=== PATIENT | male | born 1990 | race Caucasian/White ===

== ENCOUNTER 2025-03-29 22:13 | Emergency (ER) | payer OTHER, SELFPAY ==
--- OUTSIDE RECORDS SUMMARY | 2024-01-26 06:15 | XMS_ITS ---
Author Organization [facility] vices Address [address] [place], [place] [address] Care Team Providers Care Belt Weaver Name Role Phone Aimee Jamison Unavailable [phone] REASON FOR VISIT Rest #4-MOD, #5-MOD Medications Medication SIG (Take, Route, Frequency, Duration) Notes Start Date End Date Status Cymbalta 30 MG 1 capsule Orally Once a day Not-Taking metFORMIN HCl 1000 MG 1 tablet with a meal Orally Twice daily; Duration: 90 days 09/01/2022 Active Valsartan-hydroCHLOR Othiazide 320-25 MG 1 tablet Oral Once a day; Duration: 90 days Not-Taking metFORMIN HCl ER 750 MG 1 tablet after breakfast Orally Once a day; Duration: 90 days 09/29/2021 Active Norvasc 10 MG 1 Oral daily; Duration: 90 days 10/26/2016 Active Atorvastatin Calcium 10 MG 1 tablet Orally Once a day; Duration: 90 days 09/07/2018 Active Vitamin D (Ergocalciferol) 1.25 MG (04272 UT) TAKE ONE CAPSULE BY MOUTH ONCE WEEKLY; Duration: 28 Active Blood Glucose System Wayne - as directed external weekly; Duration: 30 days Dispense 1 glucometer- insurance preferred or direct to otc version. 04/21/2022 Active Blood Glucose Test Strip 1 strip external daily; Duration: 90 days dispense strips to insurance preferred meter, or direct to otc meter and strips 02/10/2022 Active LORazepam Active Gabapentin Active Social History Sex Assigned At : Social History Observation Description Sex Assigned At Male Encounters Encounter Location Date Provider Diagnosis Dental [address] [phone] 01/26/2024 Aimee Jamison Dental caries int o dentine K02.62 Assessments Encounter Date Diagnosis (ICD Code) Assessment Notes Treatment Notes Treatment Clinical Notes Section Notes 01/26/2024 Dental caries into dentine (ICD-10 - K02.62) Plan Of Treatment No Information Progress Notes * Artemio VARGASOB:1990 ([age] yo M)Acc No.[id number]:01/26/2024 Patient: Papa BROWN Provider: Marly Jamison DDS :1990 A ge:33 Y S ex:Male Date:01/26/2024 Address:[address] [place] [address], [id number] Subjective: * Chief Complaints: * 1 . Rest #4-MOD, #5-MOD. * Medical History: * Medications: T aking Gabapentin , Taking LORazepam , Taking Blood Glucose Test Strip 1 strip external daily , Notes to Pharmacist: dispense strips to insurance preferred meter, or direct to otc meter and strips, Taking Blood Glucose System Wayne - Kit as directed external weekly , Notes to Pharmacist: Dispense 1 glucometer- insurance preferred or direct to otc version., Taking Vitamin D (Ergocalciferol) 1.25 MG (26643 UT) Capsule TAKE ONE CAPSULE BY MOUTH ONCE WEEKLY , Taking Atorvastatin Calcium 10 MG Tablet 1 tablet Orally Once a day , Taking Norvasc 10 MG Tablet 1 Oral daily , Taking metFORMIN HCl ER 750 MG Tablet Extended Release 24 Hour 1 tablet after breakfast Orally Once a day , Taking metFORMIN HCl 1000 MG Tablet 1 tablet with a meal Orally Twice daily , Not-Taking/PRN Cymbalta 30 MG Capsule Delayed Release Particles 1 capsule Orally Once a day , Not-Taking/PRN Valsartan-hydroCHLOROthiazide 320-25 MG Tablet 1 tablet Oral Once a day Objective: * Vitals: * Dental Examination/Plan : Tooth / Surface Status Description Provider 13 DO TP RESIN-BASED COMPOSITE - TWO SURFACES ; POSTERIOR BALJIT 01/26/2024 Assessment: * Assessment: 1. D ental caries into dentine - K02.62 (Primary) Plan: * Treatment: * Billing Information: * Visit Code: * Procedure Codes: * Electronic signature of Sandrita Jamison DDS on 03/29/2025 at 10:24 PM EDT Sign off status: Pending * Provider: Marly Jamison, DDS Date: 0 01/26/2024 Generated for Americo caicedo/Elly/Gagandeep on: 0 03/29/2025 10:24 PM EDT
--- OUTSIDE RECORDS SUMMARY | 2024-08-01 12:00 | XMS_ITS ---
Author Organization [facility] vices Address [address] [place], [place] [address] Care Team Providers Care Bindery Operator Name Role Phone Yaquelin Aimee Unavailable [phone] REASON FOR VISIT Recall (A) (34) Social History Sex Assigned At : Social History Observation Description Sex Assigned At Male Encounters Encounter Location Date Provider Diagnosis [facility] [address] [place] [phone] 08/01/2024 Aimee Jamison Plan Of Treatment No Information Progress Notes * Artemio VARGASOB:1990 ([age] yo M)Acc No.[id number]:08/01/2024 Patient: Papa BROWN Provider: Marly Jamison DDS :1990 A ge:33 Y S ex:Male Date:08/01/2024 Address:[address] [place], [place] [phone] Subjective: * Chief Complaints: * 1 . Recall (A) (34). * Medical History: Objective: * Vitals: Assessment: Plan: * Treatment: * Billing Information: * Visit Code: * Procedure Codes: * Electronic signature of Sandrita Jamison DDS on 03/29/2025 at 10:24 PM EDT Sign off status: Pending * Provider: Marly Jamison DDS Date: 1 10/02/2023 Generated for Printi ng/Faxing/eTransmitting on: 0 03/29/2025 10:24 PM EDT
--- OUTSIDE RECORDS SUMMARY | 2024-12-08 14:15 | XMS_ITS ---
Author Organization [facility] Address [address] [place] [address] Care Team Providers Care Product Assurance Engineer Name Role Phone Daniela Tony Primary Care Provider [phone] REASON FOR VISIT 2 WKS, PX/LABS Encounters Encounter Location Date Provider Diagnosis [facility] [address] [place] [address] 12/08/2024 Daniela Tony Plan Of Treatment No Information Progress Notes * CK LARIOSONDOB:1990 ([age] yo M)Acc No.[id number]:12/08/2024 Patient: BRAD BROWN Provider: Pily Tony CNP :1990 A ge:34 Y S ex:Male Date:12/08/2024 Address:[address] [place], [place] [phone] Subjective: * Chief Complaints: * 1 . 2 WKS, PX/LABS. * Medical History: Objective: * Vitals: Assessment: Plan: * Treatment: * * Electronic signature of Daniela Tony CNP on 03/29/2025 at 10:24 PM EDT Sign off status: Pending * Provider: Pily Tony CNP Date: 0 12/08/2024 Generated for Americo caicedo/Elly/eTlollysmitting on: 0 03/29/2025 10:24 PM EDT
[2025-03-29 22:18] VITALS: BP 116/66; PULSE 84; TEMP 36.8; O2SAT 98; BMI 34.0
--- NOTE | 2025-03-29 22:20 | ECG_ITS ---
[facility] Test Date: 2025-03-29 Pat Name: BRAD LARIOS Department: Room: - Gender: Male Manager Clinical Pharmacy: : 1990 Requested By: [id number] Order Number: [id number] Reading MD: BECKA MARIA M.D. Measurements Intervals [place] Rate: 80 P: 248 [place]: 112 QRS: 3 QRSD: 84 T: -13 QT: 366 QTc: 402 Interpretive Statements ECTOPIC ATRIAL RHYTHM 4068 Nonspecific Twave abnormality 5233 Voltage criteria for LVH 9150 abnormal ECG No previous ECG available for comparison Electronically Signed On 03-30-2025 18:30:39 EDT by BECKA MARIA M.D.
--- OUTSIDE RECORDS SUMMARY | 2025-03-29 22:24 | XMS_ITS | Encounter Summary ---
Author Organization [facility] tem Address [id number] [address] [place] [address] Care Team Providers Care Revenue Stamp Cutter Name Role Phone Ev Masters DO Primary Care Provider Encounter Details Date Type Department Care Team (Late Contact Info) Description 12/21/2022 Abstract [facility] [address] [address] Tiera Nice CMA Social History Tobacco Use Types Packs/Day Years Used Date Smoking Tobacco: Every Day Pipe Smokeless Tobacco: Never Alcohol Use Standard Drinks/Week Comments Not Currently 0 (1 standard drink = 0.6 oz pur e alcohol) rarely Childcare Answer Date Recorded Childcare Unknown 02/08/2019 Employment Answer Date Recorded Employment Unknown 02/08/2019 Purpose - Life Answer Date Recorded Purpose and direction in life Unknown Sex and Gender Information Value Date Recorded Sex Assigned at Not on file Legal Sex Male 12:07 PM EDT Gender Identity Not on file Sexual Orientation Not on file documented as of this encounter Plan of Treatment Upcoming Encounters Date Type Department Care Team (Late Contact Info) Description 04/26/2025 1:00 PM EDT Office Visit [facility] [address] [place] [address] Ev Msaters DO [address] [facility] [place] [address] documented as of this encounter Visit Diagnoses Not on filedocumented in this encounter Additional Health Concerns Infection Onset Date Last Indicated Resolved Time COVID-19 Rule-Out 06/02/2023 06/02/2023 06/02/2023 1:46 PM EDT COVID-19 Rule-Out 02/19/2024 02/19/2024 02/19/2024 3:28 AM EDT documented as of this encounter Care Teams Revenue Stamp Cutter Relationship Specialty Start Date End Date Ev Masters DO [address] [facility] [address] [place] [address] PCP - General Family Medicine 12/18/22 documented as of this encounter
--- OUTSIDE RECORDS SUMMARY | 2025-03-29 22:24 | XMS_ITS | Encounter Summary ---
Author Organization [facility] Address [id number] [address] [place] [address] Care Team Providers Care Planned Giving Officer Name Role Phone Ev Masters Primary Care Provider [phone] Reason for Visit * Reason Onset Date Comments Med Refill 02/21/2024 Encounter Details Date Type Department Care Team (Late Contact Info) Description 02/21/2024 Refill [facility] [address] [place] [address] Jeniffer Cosme, RMPily Upper respiratory infection with cough and congestion Social History Tobacco Use Types Packs/Day Years Used Date Smoking Tobacco: Every Day Pipe Smokeless Tobacco: Never Alcohol Use Standard Drinks/Week Comments Not Currently 0 (1 standard drink = 0.6 oz pur e alcohol) rarely Childcare Answer Date Recorded Childcare Unknown 02/08/2019 Employment Answer Date Recorded Employment Unknown 02/08/2019 Hunger Screening Answer Date Recorded Within the past 12 months we worried whether our food would run out before we got money to buy more. Never True 02/19/2024 Within the past 12 months th e food we bought just didn't last and we didn't have money to get more. Never True 02/19/2024 Purpose - Life Answer Date Recorded Purpose [...] Office Visit [facility] [address] [place] [address] Ev Masters DO [address] [place] [address] documented as of this encounter Visit Diagnoses Diagnosis Upper respiratory infection with cough and congestion documented in this encounter Care Teams Planned Giving Officer Relationship Specialty Start Date End Date Ev Masters DO [address] [facility] [address] [place], [place] [address] PCP - General Family Medicine 12/18/22 documented as of this encounter
--- OUTSIDE RECORDS SUMMARY | 2025-03-29 22:24 | XMS_ITS | Encounter Summary ---
Author Organization [facility] Address [id number] [address] [place] [address] Care Team Providers Care Hearing Health Technician Name Role Phone Ev Masters Primary Care Provider Encounter Details Date Type Department Care Team (Late st Contact Info) Description 12/02/2023 Orders Only [facility] [address] [place] [address] Pablito Riddle, SUPERVISOR THROWING DEPARTMENT-ORTHODONTIC TECHNICIAN ASSISTANT [address] [facility] [place] [address] Gastroesophageal reflux disease, unspecified whether esophagitis present (Primary Dx) Social History Tobacco Use Types Packs/Day Years [...] got money to buy more. Never True 10/28/2023 Within the past 12 months th e food we bought just didn't last and we didn't have money to get more. Never True 10/28/2023 Purpose - Life Answer Date Recorded Purpose and direction in life Unknown Sex and Gender Information Value Date Recorded Sex Assigned at Not on file Legal Sex Male 12:07 PM EDT Gender Identity Not on file Sexual Orientation Not on file documented as of this encounter Plan of Treatment Upcoming Encounters Date Type Department Care Team (Late st Contact Info) Description 04/26/2025 1:00 PM EDT Office Visit [facility] [address] [place] [address] Ev Masters DO [address] [place] [address] documented as of this encounter Visit Diagnoses Diagnosis Gastroesophageal reflux disease, unspecified whether esophagitis present- Primary documented in this encounter Additional Health Concerns Infection Onset Date Last Indicated Resolved Time COVID-19 Rule-Out 02/19/2024 02/19/2024 02/19/2024 3:28 AM EDT documented as of this encounter Care Teams Hearing Health Technician Relationship Specialty Start Date End Date Ev Masters DO [address] [place] [address] PCP - General Family Medicine 12/18/22 documented as of this encounter
--- OUTSIDE RECORDS SUMMARY | 2025-03-29 22:24 | XMS_ITS | Encounter Summary ---
Author Organization [facility] tem Address [id number] [address] [place] [address] Care Team Providers Care Online Advertising Analyst Name Role Phone Ev Masters DO Primary Care Provider Encounter Details Date Type Department Care Team ([facility] Contact Info) Description 03/10/2023 Orders Only [facility] [address] [address] Pablito Riddle, ACCOUNTS COLLECTOR-TRACK SUPERVISOR [address] [facility] [address] [place] [address] Social History Tobacco Use Types Packs/Day Years Used Date Smoking Tobacco: Every Day Cigarettes Smokeless Tobacco: Never Alcohol Use Standard Drinks/Week [...] Office Visit [facility] [address] [place] [address] Ev Masters DO [address] [place], [place] [address] [place] [address] documented as of this encounter Visit Diagnoses Not on filedocumented in this encounter Additional Health Concerns Infection Onset Date Last Indicated Resolved Time COVID-19 Rule-Out 06/02/2023 06/02/2023 06/02/2023 1:46 PM EDT COVID-19 Rule-Out 02/19/2024 02/19/2024 02/19/2024 3:28 AM EDT documented as of this encounter Care Teams Online Advertising Analyst Relationship Specialty Start Date End Date Ev Masters DO [address] [place] [address] PCP - General Family Medicine 12/18/22 documented as of this encounter
--- OUTSIDE RECORDS SUMMARY | 2025-03-29 22:25 | XMS_ITS | Patient Health Record ---
Author Organization [facility] Address [address] [place] [address] Care Team Providers Care Hoist Mechanic Name Role Phone Aniyagloria Daniela Primary Care Provider Allergies No Known Allergies Reason For Referral Reason Obstructive sleep ap janette syndrome Diagnosis 1 Obstructive sleep ap janette syndrome (G47.33) Referral Organization [facility] Referring Provider First Name Daniela Referring Provider Last Name Chavo Referring Provider Speciality Nurse Prac titioner Referred Provider chandler Carr Referred Provider Specialty Sleep Medici ne General Notes hx of wearing a cpap , needs new test Clinical Notes CONSULT PENDING PT H NO VB SET UP , [facility] , [address] [place], [place] [address] , PH [phone], FX [phone], Karina Mishra 11/28/2024 11:05:43 AM > Referral Priority Routine Medications Medication SIG (Take, Route, Fr equency, Duration) Notes Start Date End Date Status metFORMIN HCl 1000 MG 1 tablet with a me al Orally Once a day; Duration: 30 days Ac tive Valsartan 320 MG 1 tablet Orally Once a day; Duration: 30 days Active SEROquel 25 MG 1 tablet at bedtime Orally Once a day Active Vraylar 1.5 MG 1 capsule Orally Once a day Active Social History Tobacco Use: Social History Observation Description Date Details (start date - stop date) Current Smoker 08/30/2002 - NA Tobacco Control (Standard) Question Answer Notes Tobacco use: Current smoker When did you start smoking? 08/30/2002 How often do you smoke cigarettes? Every day How many cigarettes a day do you smoke? 11-20 How soon after you wake up d o you smoke your first cigarette? Within 5 minutes Are you interested in quitting? Thinking about q uitting AUDIT-C (Standard) Question Answer Notes Did you have a drink contain ing alcohol in the past year? Yes How often did you have a dri nk containing alcohol in the past year? Monthly or less (1 point) How many drinks did you have on a typical day when you were drinking in the past year? 5 or 6 drinks (2 points) How often did you have six o r more drinks on one occasion in the past year? Less than monthly (1 point) Points 4 Interpretation Positive Problems Problem Type SNOMED Code ICD Code Onset Dates Problem Status W/U Status Risk Notes Problem Essential hypertension (51357736) Essential hypertension (I10) Active confirmed Problem Type II diabetes mellitus without complication (840177840) Type 2 diabetes mellitus without complication, without long-term current use of insulin (E11.9) Active confirmed Problem Tobacco dependence (00566288) Tobacco dependence (F17.200) Active confirmed Problem Bipolar 2 disorder (92047071) Bipolar 2 disorder (F31.81) Active confirmed Vital Signs Heart Rate 92 /min 11/24/2024 Temperature 97.6 degrees Fahrenheit 11/24/2024 Respiratory Rate 18 /min 11/24/2024 Oximetry 96 % 11/24/2024 Blood pressure diastolic 70 mm Hg 11/24/2024 Height 67.75 in 11/24/2024 Blood pressure systolic 112 mm Hg 11/24/2024 Weight 239.4 lbs 11/24/2024 BMI 36.67 kg/m2 11/24/2024 Encounters Encounter Location Date Provider Diagnosis [facility] [address] [place] [address] 11/24/2024 Daniela Tony Obstructive sleep ap janette syndrome G47.33 ; Type 2 diabetes mellitus without complication, without long-term current use of insulin E11.9 ; Essential hypertension I10 ; Bipolar 2 disorder F31.81 and Tobacco dependence F17.200 [facility] [address] [place] [address] 11/28/2024 Daniela Tony Assessments Encounter Date Diagnosis (ICD Code) Assessment Notes Treatment Notes Treatment Clinical Notes Section Notes 11/24/2024 Type 2 diabetes mellitus without complication, without long-term current use of insulin (ICD-10 - E11.9) med refilled, labs ordered Pt advised to limit carb intake. 5 times weekly Exercise encouraged. Will monitor Blood sugar routinely 11/24/2024 Obstructive sleep apnea syndrome (ICD-10 - G47.33) refer to sleep lab 11/24/2024 Essential hypertension (ICD-10 - I10) stable inoffice today med refilled, labs ordered pt advised to limit salt/sodium intake. Exercise and monitor BP routinely. 11/24/2024 Bipolar 2 disorder (ICD-10 - F31.81) continue to follow with psychiatrist 11/24/2024 Tobacco dependence (ICD-10 - F17.200) patient encouraged to abstain from use of tobacco products Plan Of Treatment Pending Test Test Name Order Date Hemoglobin A1c 11/24/2024 Lipid Panel 11/24/2024 CBC NO DIFF 11/24/2024 CMP 11/24/2024 Insurance Providers Payer Name Payer Address Payer Phone Subscriber Number Group Number Insured Name Patient Relationship to Insured Coverage Start Date Coverage End Date [facility] [address] [place] [address] [id number] BRAD LARIOS Self - patient is the insured Medical (General) History Medical History History ICD Code hypertension sleep apnea type II diabetes bipolar disorder type two depression anxiety 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
--- OUTSIDE RECORDS SUMMARY | 2025-03-29 22:25 | XMS_ITS | Encounter Summary ---
Author Organization [facility] Address [address] [place], [place] [address] Care Team Providers Care Bottom Sander Name Role Phone Unavailable Primary Care Provider Unavailabl e Source Comments In the event this information is protected by the Federal Confidentiality of Alcohol and Drug AbusePatient Records regulations: The Federal rules restrict any use of the information to criminally investigate or prosecute any alcohol or drug abuse patient.[facility] Encounter Details Date Type Department Care Team (Late st Contact Info) Description 03/14/2025 Lab Requisition [facility] [address] [place] [address] Pattie Williamson, PhD [address] [place], [place] [address] Social History Tobacco Use Types Packs/Day Years Used Date Smoking Tobacco: Never Assessed Sex and Gender Information Value Date Recorded Sex Assigned at Not on file Legal Sex Male 11:22 AM EDT Gender Identity Not on file Sexual Orientation Not on file documented as of this encounter Plan of Treatment Not on file documented as of this encounter Procedures Procedure Name Priority Date/Time Associated Diagnosis Comments BLOOD TB SCREEN, INCUBATED Routine 03/13/2025 10:09 AM EDT documented in this encounter Results * BLOOD TB SCREEN, INCUBATED (03/13/2025 10:09 AM EDT) TB Nil 0.12 <=8.00 IU/mL 03/16/2025 12:47 PM EDT [facility] TB1 Ag minus Nil 0.00 <0.35 IU/mL 03/16/2025 12:47 PM EDT [facility] TB2 Ag minus Nil 0.00 <0.35 IU/mL 03/16/2025 12:47 PM EDT [facility] TB Result Negative 03/16/2025 12:47 PM EDT [facility] Mitogen minus Nil >9.88 >=0.50 IU/mL 03/16/2025 12:47 PM EDT [facility] TB Gamma Interpretation Infection with M. tuberculosis complex is unlikely. If latent tuberculosis infection is highly suspected, a negative result does not rule out the infection. Specimens from immunocompromised patients and those <5 years of age may show false negative results. In case of a contact investigation, please repeat 8-12 weeks after a known exposure. 03/16/2025 12:47 PM EDT [facility] Blood BLOOD SPECIMEN / Unknown 03/13/2025 10:09 AM EDT 03/15/2025 9:35 PM EDT us Pattie Williamson PhD LABORATORY Final Resul t [facility] [address] [address] documented in this encounter Visit Diagnoses Not on filedocumented in this encounter
--- OUTSIDE RECORDS SUMMARY | 2025-03-29 22:25 | XMS_ITS | Clinical Summary ---
Author Organization [employer] Address [id number] [address] [place] [address] Care Team Providers Care Inside Sales Account Executive Name Role Phone Ev Masters Primary Care Provider [phone] Allergies Active Allergy Reactions Criticality Noted Date Comments Haloperidol Lactate 03/31/2016 Spoke with pt (01/27/22) - states he had jaw tightness with haloperidol, this happened a long time ago Pt specifies locked jaw with psychiatrist. Chlorpromazine muscle cramps 05/10/2016 Medications * This document contains information received from the source organization and may not represent a complete record from that organization. ibuprofen (MOTRIN) 800 mg tablet Take 1 tablet (800 mg total) by mouth 3 (three) times a day. 21 tablet 4 Active atorvastatin (LIPITOR) 10 mg tabletIndications:M ixed hyperlipidemia Take 1 tablet (10 mg total) by mouth in the morning. 90 tablet 3 5 Active valsartan-hydroCHLO ROthiazide (DIOVAN-HCT) 320-25 mg per tabletIndications:E ssential hypertension Take 1 tablet by mouth in the morning. 90 tablet 3 5 Active metFORMIN (GLUCOPHAGE) 1000 mg tabletIndications:T ype 2 diabetes mellitus with hyperglycemia, without long-term current use of insulin ([facility]) Take 1 tablet (1,000 mg total) by mouth daily with breakfast. 90 tablet 3 5 Active cariprazine (VRAYLAR) 3 mg capsuleIndications: Bipolar depression ([facility]) Take 1 capsule (3 mg total) by mouth in the morning. 90 capsule 3 Active varenicline tartrate (CHANTIX STARTING MONTH BOX) 0.5 mg (11)- 1 mg (42) tabletIndications:T obacco use Take 0.5 mg one daily on days 1-3 and 0.5 mg twice daily on days 4-7. Then 1 mg twice daily for a total of 12 weeks. 53 tablet Active Active Problems Problem Noted Date Diagnosed Date Addictive gambling 09/29/2024 Schizoaffective disorder 09/06/2024 Substance use disorder 06/12/2024 Bipolar depression 05/06/2024 Generalized anxiety disorder with panic attacks 08/29/2023 History of auditory hallucinations 04/19/2023 History of suicidal ideation 04/19/2023 RICARDO (obstructive sleep apnea) 12/18/2022 Tobacco use 12/18/2022 DM (diabetes mellitus), type 2 01/27/2022 Essential hypertension 12/17/2016 Mixed hyperlipidemia 12/17/2016 BMI 30.0-30.9,adult 12/17/2016 Resolved Problems Problem Noted Date Diagnosed Date Resolved Date Attention deficit hyperactiv ity disorder (ADHD), combined type 04/11/2024 05/08/2024 Insomnia due to other mental disorder 08/29/2023 05/08/2024 Prediabetes 06/14/2023 06/14/2023 History of homicidal ideation 04/19/2023 06/12/2024 Hx of psychosis 12/18/2022 05/08/2024 Schizoaffective disorder, bipolar type 12/18/2022 05/08/2024 Severe anxiety with panic 12/18/2022 Bipolar disorder, current ep isode mixed, severe, without psychotic features 01/27/202212/18 Hx of opioid abuse 01/27/2022 Leukocytosis 11/04/2021 12/18/2022 Bipolar affective disorder 08/13/2021 0 12/18/2022 Depression 05/10/2021 07/06/2023 Bipolar affective disorder, currently manic, mild 01/14/2021 04/19/2023 Overdose 01/13/2021 07/06/2023 Severe depressed bipolar I d isorder without psychotic features 06/28/2019 12/18/2022 Severe recurrent major depre ssion with psychotic features 12/15/2016 05/08/2024 Encounters Date Type Department Care Team Description 02/16/2025 12:00 PM EDT - 02/16/2025 12:21 PM EDT Emergency [facility] - ER [address] [place] [phone] Arely Yan DO Oral ulcer (Primary Dx) Discharge Disposition: Home 02/16/2025 Travel 02/13/2025 10:53 PM EDT - 02/13/2025 11:35 PM EDT Emergency [facility] - ER [address] [place] [id number] Vishal Mitchell MD Contusion of right knee, initial encounter (Primary Dx) Discharge Disposition: Home 02/13/2025 Travel 02/06/2025 Orders Only [facility] [address] [address] Ev Masters DO Tobacco use (Primary Dx) 02/06/2025 Refill [facility] [address] [address] Ev Masters DO Bipolar depression ([facility]) 01/24/2025 Telephone [facility] - Sleep Disorders [address] [place] [address] Ev Masters DO Sleep Lab (COMP) 01/23/2025 1:00 PM EDT Office Visit [facility] [address] [place] [address] Ev Masters DO Type 2 diabetes mellitus with hyperglycemia, without long-term current use of insulin (CMS-HCC) (Primary Dx); Essential hypertension; Bipolar depression (CMS-HCC); Mixed hyperlipidemia; RICARDO (obstructive sleep apnea); Excessive daytime sleepiness 01/23/2025 Travel from Last 3 Months Immunizations Immunization Administration Dates Next Due DTP 02/20/1991,06/13/1990,04/18/1990 ,01/31/1990 HiB 02/20/1991 MMR 04/19/2003,02/20/1991 OPV 02/20/1991,04/18/1990,01/31/1990 Td, Unspecified 08/31/2001 Tdap 12/28/2018,05/07/2016 Family History Medical History Relation Name Comments Stroke Father Relation Name Status Comments Father Mother Alive Social History Tobacco Use Types Packs/Day Years Used Date Smoking Tobacco: Every Day Cigarettes Pipe Smokeless Tobacco: Never Tobacco Cessation:Ready to Q uit: Not Asked; Counseling Given: Not Answered Comments:Bowls of tobacco Alcohol Use Standard Drinks/Week Comments Not Currently 0 (1 standard drink = 0.6 oz pur e alcohol) rarely [facility] Utilities Answer Date Recorded In the past 12 months has th e electric, gas, oil, or water company threatened to shut off services in your home? No 05/06/2024 PHQ-2 Answer Date Recorded Total Score 18 01/23/2025 PRAPARE - Transportation Answer Date Re corded In the past 12 months, has l ack of transportation kept you from medical appointments or from getting medications? No 02/2024 In the past 12 months, has l ack of transportation kept you from meetings, work, or from getting things needed for daily living? No 05/06/2024 Housing Instability Answer Date Recorde d Are you worried or concerned that in the next two months you may not have stable housing that you own, rent or stay in as a part of a household? No 05/06/2024 Childcare Answer Date Recorded Childcare Unknown 02/08/2019 Employment Answer Date Recorded Employment Unknown 02/08/2019 Hunger Screening Answer Date Recorded Within the past 12 months we worried whether our food would run out before we got money to buy more. Never True 01/23/2025 Within the past 12 months th e food we bought just didn't last and we didn't have money to get more. Never True 01/23/2025 Purpose - Life Answer Date Recorded Purpose and direction in life Unknown Sex and Gender Information Value Date Recorded Sex Assigned at Not on file Legal Sex Male 12:07 PM EDT Gender Identity Not on file Sexual Orientation Not on file Last Filed Vital Signs Vital Sign Reading Time Taken Comments Blood Pressure 138/93 02/16/2025 12:01 PM EDT Pulse 76 02/16/2025 12:01 PM EDT Temperature 36.1 C (97 F) 02/16/2025 12:01 PM EDT Respiratory Rate 18 02/16/2025 12:01 PM EDT Oxygen Saturation 98% 02/16/2025 12:01 PM EDT Inhaled Oxygen Concentration - - Weight 104.8 kg (231 lb) 02/13/2025 10:58 PM EDT Height 176 cm (5' 9.29 ) 02/13/2025 10:58 PM EDT Body Mass Index 33.83 02/13/2025 10:58 PM EDT Plan of Treatment Upcoming Encounters Date Type Department Care Team (Late st Contact Info) Description 04/26/2025 1:00 PM EDT Office Visit [facility] [address] [place] [address] Ev Masters, DO [address] [facility] [address] [place] [address] Health Maintenance Due Date Last Done Comments Diabetic Ophthalmology Exam 1989 Tobacco Counseling 1989 Adult BMI Follow Up Plan 11/04/2007 Diabetic Foot Exam 11/04/2007 COVID-19 Vaccine (4 - 2023-2 5 season) 2024 10/05/2021, 05/04/2021, 04/13/2021 Influenza Vaccine 04/30/2025 Depression Screening 01/23/2026 01/23/2025 Adult BMI Screening 02/13/2026 02/13/2025 Tobacco Screening 02/16/2026 02/16/2025 DTaP,Tdap and Td Vaccines (8 - Td or Tdap) 12/28/2028 12/28/2018, 05/07/2016, 08/31/2001, Additional history exists Medical Devices Not on file Procedures Procedure Name Priority Date/Time Associated Diagnosis Comments XR KNEE RT 3 VWS STAT 02/13/2025 11:1 6 PM EDT POCT HEMOGLOBIN A1C Routine 01/23/2025 1 :07 PM EDT Type 2 diabetes mellitus with hyperglycemia, without long-term current use of insulin ([facility]) from Last 3 Months Results * X-ray knee right 3 views (02/13/2025 11:16 PM EDT) Anatomical Region Laterality Modality Lower Extremities, MSK, Knee Right Com puted Radiography 02/13/2025 11:1 7 PM EDT Narrative 02/13/2025 11:18 PM EDT XR KNEE RT 3 VWS Clinical history:pain Comparison: None. Findings: No joint effusion. No fracture or dislocation. Alignment and mineralization appear to be within normal limits. Impression: No definitive acute osseous abnormality. Finalized by Mika Martinez MD on 02/13/2025 11:18 PM Procedure Note Mika Martinez MD - 02/13/2025 XR KNEE RT 3 VWS Clinical history:pain Comparison: None. Findings: No joint effusion. No fracture or dislocation. Alignment andmineralization appear to be within normal limits. Impression: No definitive acute osseous abnormality. Finalized by Mika Martinez MD on 02/13/2025 11:18 PM us Vishal Mitchell MD IMG DIAGNOSTIC IMAGING ORDERA BLES Final Result * POCT Hemoglobin A1c (01/23/2025 1:07 PM EDT) External Poct Hgb A1C 5.4 4 - 7 % MANUALLY TRANSCRIBED RESULTS ADA Target < 8 Yes AUDREY DAVE TRANSCRIBED RESULTS Blood 01/23/2025 1:07 PM EDT us Ev Masters DO POINT OF CARE TEST ORDERABL ES Final Result MANUALLY TRANSCRIBED RESULTS from Last 3 Months Insurance [facility] MEDICAID Advance Directives * Full Code (Latest Code Status on File) Date Activated Date Inactivated Comments 09/06/2024 11:54 AM 09/11/2024 12:27 PM * Full Code Date Activated Date Inactivated Comments 05/06/2024 12:04 PM 05/08/2024 2:02 PM * Full Code Date Activated Date Inactivated Comments 01/27/2022 11:32 AM 02/03/2022 3:53 PM * Full Code Date Activated Date Inactivated Comments 11/04/2021 1:55 PM 11/07/2021 1:10 PM * Full Code Date Activated Date Inactivated Comments 08/13/2021 2:42 PM 08/15/2021 1:21 PM Care Teams Inside Sales Account Executive Relationship Specialty Start Date End Date Ev Masters DO [address] [facility] [address] [place] [address] PCP - General Family Medicine 12/18/22
--- OUTSIDE RECORDS SUMMARY | 2025-03-29 22:25 | XMS_ITS | Encounter Summary ---
Author Organization [facility] Address [facility] [id number] [address] [place] [address] Care Team Providers Care Charge Nurse Name Role Phone Ev Masters Torsten VICTORIA Primary Care Provider [phone] Encounter Details Date Type Department Care Team (Late st Contact Info) Description 08/24/2024 Orders Only [facility] [address] [place] [address] Pablito Riddle, HOSPITAL [employer]ICAL BILLER-ROLL FORGER [address] [facility] [place] [address] Social History Tobacco Use Types Packs/Day Years Used Date Smoking Tobacco: Every Day Cigarettes Pipe Smokeless Tobacco: Never Alcohol Use Standard Drinks/Week Comments Yes 0 (1 standard drink = 0.6 oz pur e alcohol) rarely C Utilities Answer Date Recorded In the past 12 months has [employer], gas, oil, or water [employer] threatened to shut off services in your home? No 05/06/2024 PHQ-2 Answer Date Recorded Total Score 0 06/12/2024 PRAPARE - Transportation Answer Date Re corded [...] got money to buy more. Never True 06/12/2024 Within the past 12 months th e food we bought just didn't last and we didn't have money to get more. Never True 06/12/2024 Purpose - Life Answer Date Recorded Purpose [...] Office Visit [facility] [address] [place] [address] Ev Masters DO [address] [facility] [address] [place] [address] documented as of this encounter Visit Diagnoses Not on filedocumented in this encounter Additional Health Concerns Assessment Noted Time PHQ-9 Depression Total Score: 0 06/12/20 24 3:09 PM EDT documented as of this encounter Care Teams Charge Nurse Relationship Specialty Start Date End Date Ev Masters DO [address] [facility] [address] [place] [address] PCP - General Family Medicine 12/18/22 documented as of this encounter
--- OUTSIDE RECORDS SUMMARY | 2025-03-29 22:25 | XMS_ITS | Encounter Summary ---
Author Organization [facility] tem Address [id number] [address] [place] [address] Care Team Providers Care Straightening Machine Feeder Name Role Phone Ev Masters Torsten VICTORIA Primary Care Provider [phone]- [phone] Encounter Details Date Type Department Care Team (Late st Contact Info) Description 08/27/2023 Telephone [facility] [address] [place] [id number] Viri Wolf RMA Social History Tobacco Use Types Packs/Day Years [...] before we got money to buy more. Often True 07/06/2023 Within the past 12 months th e food we bought just didn't last and we didn't have money to get more. Often True 07/06/2023 Purpose - Life Answer Date Recorded Purpose and direction in life Unknown Sex and Gender Information Value Date Recorded Sex Assigned at Not on file Legal Sex Male 12:07 PM EDT Gender Identity Not on file Sexual Orientation Not on file documented as of this encounter Miscellaneous Notes * Telephone Encounter - CHAVEZ Pandya - 08/27/2023 8:39 AM EST Celina krishnamurthy wanted to know if it has to be the extended release because that is requiring a prior authorization or can he have the normal Metformin that he had been getting? * Telephone Encounter - Ev Masters DO - 08/27/2023 8:39 AM EST Normal metformin is fine, as long as that is what he was prescribed in the past. Okay to give verbal order to change. Please update med rec. documented in this encounter Plan of Treatment Upcoming Encounters Date Type Department Care Team ([facility] st Contact Info) Description 04/26/2025 1:00 PM EDT Office Visit [facility] [address] [place] [address] Ev Masters DO [address] [facility] [address] [place] [address] documented as of this encounter Visit Diagnoses Not on filedocumented in this encounter Additional Health Concerns Infection Onset Date Last Indicated Resolved Time COVID-19 Rule-Out 02/19/2024 02/19/2024 02/19/2024 3:28 AM EDT documented as of this encounter Care Teams Straightening Machine Feeder Relationship Specialty Start Date End Date Ev Masters DO [address] [facility] [address] [place] [address] PCP - General Family Medicine 12/18/22 documented as of this encounter
--- OUTSIDE RECORDS SUMMARY | 2025-03-29 22:25 | XMS_ITS | Clinical Summary ---
Author Organization [facility] Address [address] [place] [address] Care Team Providers Care Charge Nurse Name Role Phone Unavailable Primary Care Provider Unavailabl e Encounters Date Type Department Care Team Description 03/14/2025 Lab Requisition [facility] [address] [place], [place] [id number] Pattie Williamson, PhD from Last 3 Months Social History Tobacco Use Types Packs/Day Years Used Date Smoking Tobacco: Never Assessed Sex and Gender Information Value Date Recorded Sex Assigned at Not on file Legal Sex Male 11:22 AM EDT Gender Identity Not on file Sexual Orientation Not on file Plan of Treatment Not on file Procedures Procedure Name Priority Date/Time Associated Diagnosis Comments BLOOD TB SCREEN, INCUBATED Routine 03/13/2025 10:09 AM EDT from Last 3 Months Results * BLOOD TB SCREEN, INCUBATED (03/13/2025 10:09 AM EDT) TB Nil 0.12 <=8.00 IU/mL 03/16/2025 12:47 PM EDT [facility] TB1 Ag minus Nil 0.00 <0.35 IU/mL 03/16/2025 12:47 PM EDT [facility] TB2 Ag minus Nil 0.00 <0.35 IU/mL 03/16/2025 12:47 PM EDT [facility] TB Result Negative 03/16/2025 12:47 PM EDT [facility] Mitogen minus Nil >9.88 >=0.50 IU/mL 03/16/2025 12:47 PM EDT [facility] TB Gamma Interpretation Infection with M. tuberculosis complex is unlikely. If latent tuberculosis infection is highly suspected, a negative result does not rule out the infection. Specimens from immunocompromised patients and those <5 years of age may show false negative results. In case of a contact investigation, please repeat 8-12 weeks after a known exposure. 03/16/2025 12:47 PM EDT [facility] Blood BLOOD SPECIMEN / Unknown 03/13/2025 10:09 AM EDT 03/15/2025 9:35 PM EDT us Pattie Williamson PhD LABORATORY Final Resul t [facility] [address] [address], [place] from Last 3 Months
--- NOTE | 2025-03-29 22:31 | ED_ITS ---
HPI HPI - General Adult General Chief complaint: Psychiatric Symptoms Stated complaint: Suicidal Time Seen by Provider: 03/29/25 22:20 History of Present Illness HPI narrative: Patient is a 34-year-old male from [facility] who presents to the emergency department for suicidal thoughts. The patient is currently in there for cocaine abuse. The patient has a known past medical history of bipolar disease. The patient states that he has been feeling suicidal for some time. And his plan would be to overdose on his medications or overdose on cocaine. He states he has been in [facility] for cocaine abuse since March 13. This is a voluntary program that he wanted to participate in. The patient stated his symptoms really have been building but today his racing and intrusive thoughts have caused him to feel suicidal. He feels extremely anxious. They have been trying to give him Vistaril in the facility but it has not been helpful in curtailing his symptoms. There is not really any specific event that is caused to this patient to all the sudden feel sad and in despair. But rather its because of the racing thoughts. He states that this has happened to him before and has had to have hospitalization. He states that he just got started on Vraylar but it is not demonstrating any change in his behavior or thoughts. Currently the patient does not feel isolated. He has supportive parents. He is not in a relationship and does not have children. Patient is currently not employed but states that that is his choice because at this time he is not concentrating on his sobriety. Patient denies any legal problems. Patient denies anybody's verbally, sexually, or physically assaulting him. Related Data Allergies Allergy/AdvReac Type Severity Reaction Status Date / Time No Known Drug Allergies Allergy Verified 03/29/25 22:33 Opioid HPI Opioid Management Most Recent Opioid Data: Ur Phencyclidine Scrn, (NEGATIVE) Negative , 23:04 Review of Systems ROS Narrative 10 Systems were reviewed, and unless not ed in the HPI, all other systems are reviewed, unremarkable, or noncontributory. PFSH PFSH Social History Little interest or pleasure in doing things: not at all Feeling down, depressed, or hopeless: several days Exam Narrative Exam Narrative: Prior to examining the patient, I have washed with hospital approved and provided Antiseptic [employer] and have also applied gloves.? Prior to touching the patient, I asked for consent to examine the patient.? General: Alert and oriented, well nourished, mild distress. Eye: PERRL, EOMI, normal conjunctiva. HENT: Normocephalic, normal hearing, moist oral mucosa, no scleral icterus, no sinus tenderness. Neck: Supple, non-tender, no carotid bruits, no JVD, no lymphadenopathy. Lungs: Clear to auscultation and percussion, non-labored respiration. Heart: Normal rate, regular rhythm, no murmur, gallop or edema. Abdomen: Soft, non-tender, non-distended, normal bowel sounds, no masses. Musculoskeletal: Normal range of motion and strength, no tenderness or swelling. Skin: Skin is warm, dry and pink, no rashes or lesions. Neurologic: Awake, alert, and oriented X3, CN II-XII intact. Psychiatric: Cooperative, flat affect and depressed mood. Following the conclusion of the examination, I have washed my hands thoroughly after removing examination gloves. Constitutional Vital Signs, click to edit/add: Last Vital Signs Temp 98.3 F 03/29/25 22:18 Pulse 84 03/29/25 22:18 Resp 20 03/29/25 22:18 BP 116/66 03/29/25 22:18 Pulse Ox 98 03/29/25 22:18 Course Course Hospital Course: Medical clearance for psychiatric care. He was placed in paper scrubs and a sitter was initiated. Reevaluation(s) Reevaluation #1: I checked on the patient. He is currently speaking on the phone with mental health. The patient was given Ativan and does feel like it is working at this time. Patient is officially medically cleared. He does have mild hypokalemia and was ordered potassium eff 50 mEq PO. Time: 23:37 Reevaluation #2: Patient is starting to AMP up and request something for anxiety. Haldol 5 mg p.o., Benadryl 50 mg p.o., and Ativan 1 mg p.o. were ordered. Time: 00:31 Consultations Consultation #1: Behavioral health has contacted our facility and had indicated that the patient is going to be held. Time: 00:10 Consultation #2: We were contacted and Dr. Segovia has accepted the patient with a diagnosis of schizoaffective disorder Time: 00:47 Vital Signs Vital signs: Vital Signs Temperature 98.3 F 03/29/25 22:18 Pulse Rate 84 03/29/25 22:18 Respiratory Rate 20 03/29/25 22:18 Blood Pressure 116/66 03/29/25 22:18 Pulse Oximetry 98 03/29/25 22:18 Temperature 98.3 F 03/29/25 22:18 Pulse Rate 84 03/29/25 22:18 Respiratory Rate 20 03/29/25 22:18 Blood Pressure 116/66 03/29/25 22:18 Pulse Oximetry 98 03/29/25 22:18 Medical Decision Making MDM Narrative Medical decision making narrative: In summary, the patient is a 34-year-old male presenting to the emergency department depression with suicidal ideation. Patient consented to receiving medical clearance. His desire is to be placed in a hospital environment. [facility] was contacted immediately upon his arrival to aid in the screening. Because the patient was anxious, we gave him 1 dose of Ativan 1 mg by mouth. Please note that the patient was not exhibiting any hostile behaviors to myself or the staff. He has been quite cooperative. He did indicate that the Vistaril that they were supplying him in the outside facility was insufficient to help him with his anxiety at this time. Differential Diagnosis Differential Diagnosis: Malingering, withdrawal, bipolar exacerbation, depression, suicidal ideatio Medical Records Medical records reviewed: Yes I reviewed the patient's medical records Lab Data Lab results reviewed: Yes I reviewed the patient's lab results Labs: Lab Results 03/29/25 03/29/25 Range/Units 22:50 23:04 WBC 9.4 (4.0-11.0) 10^3/uL RBC 5.12 (4.70-6.10) 10^6/uL Hgb 15.6 (14.0-18.0) g/dL Hct 43.8 (42.0-54.0) % MCV 85.5 (80.0-94.0) fL MCH 30.5 (25.9-34.0) pg MCHC 35.6 H (29.9-35.2) g/dL RDW 11.9 (11.0-15.0) % Plt Count 283 (150-450) 10^3/uL MPV 9.3 L (9.5-13.5) fL Neut % (Auto) 46.9 (43.0-75.0) % Lymph % (Auto) 36.9 (20.5-60.0) % Stephen[place] % (Auto) 10.7 (1.7-12.0) % Eos % (Auto) 4.5 (0.9-7.0) % Baso % (Auto) 0.6 (0.2-2.0) % Neut # (Auto) 4.4 (1.4-6.5) 10^3/uL Lymph # (Auto) 3.5 (1.2-3.8) 10^3/uL Stephenson # (Auto) 1.0 H (0.3-0.8) 10^3/uL Eos # (Auto) 0.4 (0.0-0.7) 10^3/uL Baso # (Auto) 0.1 (0.0-0.1) 10^3/uL Abs Immat Gran (auto) 0.04 H (0.00-0.03) 10^3/uL Imm/Tot Granulo (auto) 0.4 (0.0-0.5) % Sodium 136 (136-145) mmol/L Potassium 3.2 L (3.5-5.1) mmol/L Chloride 97 L (98-107) mmol/L Carbon Dioxide 30.1 (21.0-32.0) mmol/L Anion Gap 12.1 BUN 12.0 (7.0-18.0) mg/dL Creatinine 0.75 (0.70-1.30) mg/dL Est GFR ( Amer) >60 (>=60 mL/min/1.73m^2) Est GFR (Non-Af Amer) >60 (>=60 mL/min/1.73m^2) BUN/Creatinine Ratio 16.0 Glucose 194 H (74-106) mg/dL Calcium 9.0 (8.5-10.1) mg/dL Total Bilirubin 0.5 (0.2-1.0) mg/dL AST 34 (15-37) U/L ALT 97 H (16-63) U/L Alkaline Phosphatase 70 (46-116) U/L Total Protein 7.3 (6.4-8.2) g/dL Albumin 4.1 (3.4-5.0) g/dL Globulin 3.2 g/dL Albumin/Globulin Ratio 1.3 Urine Color Yellow (YELLOW) Urine Clarity Clear (CLEAR) Urine pH 6.0 (5.0-9.0) Ur Specific [place] 1.025 (1.005-1.025) Urine Protein Negative (NEG/TRACE) mg/dL Urine Glucose (UA) Negative (NEGATIVE) mg/dL Urine Ketones Negative (NEGATIVE) mg/dL Urine Occult Blood Negative (NEGATIVE) Urine Nitrite Negative (NEGATIVE) Urine Bilirubin Negative (NEGATIVE) Urine Urobilinogen 0.2 (0.2-1.0) EU/dL Ur Leukocyte Esterase Negative (NEGATIVE) Salicylates 3.0 (<=19.9) mg/dL Urine Opiates Screen Negative (NEGATIVE) Ur Buprenorphine Scrn Negative (NEGATIVE) Ur Oxycodone Screen Negative (NEGATIVE) Urine Methadone Screen Negative (NEGATIVE) Acetaminophen <2.0 L (10.0-30.0) ug/mL Ur Barbiturates Screen Negative (NEGATIVE) U Tricyclic Antidepress Negative (NEGATIVE) Ur Phencyclidine Scrn Negative (NEGATIVE) Ur Amphetamines Screen Negative (NEGATIVE) U Methamphetamines Scrn Negative (NEGATIVE) U Benzodiazepines Scrn Negative (NEGATIVE) Urine Cocaine Screen Negative (NEGATIVE) U Cannabinoids Screen Positive A (NEGATIVE) Ethanol Quant <3 mg/dL ECG Data Attestation: I personally reviewed and interpreted this ECG as follows: Interpretation: Patient has a twelve-lead EKG reveals a normal sinus rhythm with a ventricular of 80 bpm. The UT interval and QRS duration within normal limit. QTc is not prolonged. [place] is normal. Patient does have T wave inversions ubiquitous lead. Summary: Abnormal EKG. Discharge Plan Discharge Chief Complaint: Psychiatric Symptoms Clinical Impression: Suicidal ideation, Hypokalemia, Schizoaffective disorder Patient Disposition: [facility] Time of Disposition Decision: 00:48 Discharge Location: [facility] Discharge location: Psychiatric Unit Condition: Fair Mode of Transportation: EMS
[2025-03-29 23:01] LABS: Hematocrit 43.8 % (42.0-54.0); Hemoglobin 15.6 g/dL (14.0-18.0); Immature Granulocytes Abs Auto 0.04 10^3/uL (0.00-0.03); Immature Granulocytes Pct Auto 0.4 % (0.0-0.5); Lymphocytes Absolute Auto 3.5 10^3/uL (1.2-3.8); Mean Corpuscular HGB Conc 35.6 g/dL (29.9-35.2); Mean Corpuscular Hemoglobin 30.5 pg (25.9-34.0); Mean Corpuscular Volume 85.5 fL (80.0-94.0); Platelet Count 283 10^3/uL (150-450); Red Blood Count 5.12 10^6/uL (4.70-6.10); White Blood Count 9.4 10^3/uL (4.0-11.0)
[2025-03-29] MEDS: LORAZEPAM 1 MG TABLET PO (23:08)
[2025-03-29 23:11] LABS: Glucose Urine UA NEGATIVE (NEGATIVE)
--- NOTE | 2025-03-29 23:12 | PC.NURSE ---
Patient is sent from [facility]. He is there voluntarily, he did not go to detox, he is there in the residential program. He was a cocaine user and has been there since March 13. He has a history of Bipolar disorder and was recently started on Vrylar. He states he has had suicidal ideations and suicide attempts in the past and he has been placed inpatient in psychiatric facilities in the past as well. He has overdosed on Klonipin in the past. He had asked if I thought he would be placed in a facility this time and I admitted that I thought he probably would, and he states that he thinks it is a good idea and that he agrees that is where he needs to go at this time.
[2025-03-29 23:17] LABS: Alanine Aminotransferase 97 U/L (16-63); Albumin Globulin Ratio 1.3; Albumin Level 4.1 g/dL (3.4-5.0); Alkaline Phosphatase 70 U/L (46-116); Anion Gap 12.1; Aspartate Amino Transferase 34 U/L (15-37); Blood Urea Nitrogen 12.0 mg/dL (7.0-18.0); Calcium 9.0 mg/dL (8.5-10.1); Carbon Dioxide 30.1 mmol/L (21.0-32.0); Chloride 97 mmol/L (98-107); Estimated GFR (African America >60 (>=60 mL/min/1.73m^2); Estimated GFR (Non-African Ame >60 (>=60 mL/min/1.73m^2); Globulin 3.2 g/dL; Glucose 194 mg/dL (74-106); Potassium 3.2 mmol/L (3.5-5.1); Salicylate 3.0 mg/dL (<=19.9); Sodium 136 mmol/L (136-145); Total Protein 7.3 g/dL (6.4-8.2)
[2025-03-29 23:23] LABS: Acetaminophen <2.0 ug/mL (10.0-30.0)
[2025-03-29 23:24] LABS: Cannabinoid Screen Urine POSITIVE (NEGATIVE); Methamphetamines Screen Urine NEGATIVE (NEGATIVE); Tricyclic Antidepressant Urine NEGATIVE (NEGATIVE)
[2025-03-30] MEDS: LORAZEPAM 1 MG TABLET PO (00:42)
[2025-03-30] MEDS: DIPHENHYDRAMINE HCL 25 MG CAPSULE 50 MG PO (00:42)
[2025-03-30] MEDS: HALOPERIDOL 5 MG TABLET PO (00:42)
[2025-03-30] MEDS: POTASSIUM BICARBONATE/CIT 25 MEQ TABLET EFF 50 MEQ PO (00:42)
== END 2025-03-30 01:15 ==
PROVIDERS: Emergency Provider Emergency Medicine
DX: F25.9 Schizoaffective disorder, unspecified (principal); R45.851 Suicidal ideations; E87.6 Hypokalemia; F14.10 Cocaine abuse, uncomplicated; F31.9 Bipolar disorder, unspecified
CPT/HCPCS: 36415; 80053; 80179; 80307; 80320; 80329; 81003; 85025; 93005; 99285